=== PATIENT | female | born 1965 | race Caucasian/White ===

== ENCOUNTER → 2024-07-10 12:23 | Outpatient (REF) | payer OTHER, SELFPAY | LOC: WDC 12:23 | PROVIDERS: ATTENDING PHYSICIAN Family Medicine | DX: Z12.31 Encounter for screening mammogram for malignant neoplasm of breast (principal) | CPT/HCPCS: 77063; 77067 ==

== ENCOUNTER → 2025-05-05 14:39 | Outpatient (REF) | payer OTHER, SELFPAY | LOC: WDC 14:39 | PROVIDERS: ATTENDING PHYSICIAN Family Medicine | DX: R92.2 Inconclusive mammogram (principal) | CPT/HCPCS: 76641 ==

== ENCOUNTER → 2025-08-22 10:56 | Outpatient (REF) | payer OTHER, SELFPAY | LOC: RAD 10:56 | PROVIDERS: ATTENDING PHYSICIAN Family Medicine | DX: M79.644 Pain in right finger(s) (principal) | CPT/HCPCS: 73130 ==

== ENCOUNTER → 2025-08-25 11:18 | Outpatient (REF) | payer OTHER, SELFPAY | LOC: RAD 11:18 | PROVIDERS: ATTENDING PHYSICIAN Nurse Practitioner | DX: R06.02 Shortness of breath (principal) | CPT/HCPCS: 71046 ==